=== PATIENT | female | born 1960 | race Caucasian/White ===

== ENCOUNTER 2020-05-11 13:11 | Day surgery (SDC) | payer OTHER ==
[~2020-05-11] VITALS: Ht 177.8 cm; Wt 84.5 kg
[~2020-05-11 13:11] MED LIST: ACYCLOVIR PO; ALPR0.5T7 PO; BUPIVACAINE/PF 0.5% ONE; CODE1CAP9 PO; EPINEPHRINE 1 MG/ML, 1ML ONE; HYDR1TAB16 PO; LACT1CAP37 PO; MAGNESIUM PO; MINOCYCLINE PO; ONDA4TAB7 PO; ZOLP10TA PO; magnesium PO
[2020-05-11 13:41] VITALS: BP 115/76
[2020-05-11] MEDS ORDERED: CHLORHEXIDINE 15 ML UDC MM ONE (14:00)
[2020-05-11] MEDS ORDERED: LACTATED RINGERS 1,000 ML IV SCH (14:00)
[2020-05-11] MEDS ORDERED: CHLORHEXIDINE 15 ML UDC ONE (14:01)
[2020-05-11] MEDS ORDERED: FENTANYL PF 250 MCG/5ML ONE (14:41)
[2020-05-11] MEDS ORDERED: MIDAZOLAM 1 MG/ML, 2ML ONE (14:41)
[2020-05-11] MEDS ORDERED: PROPOFOL 10 MG/ML, 20ML ONE (15:29)
[2020-05-11] MEDS ORDERED: DEXAMETHASONE 4 MG/ML, 5ML ONE (15:32)
[2020-05-11] MEDS ORDERED: CEFAZOLIN 1,000 MG ONE ×2 (15:47)
[2020-05-11] MEDS ORDERED: ONDANSETRON 2MG/ML, 2ML IVPush PRN (16:00)
[2020-05-11] MEDS ORDERED: ACETAMINOPHEN 325 MG TABLET PO PRN (16:00)
[2020-05-11] MEDS ORDERED: HYDROmorphone 1 MG/ML, 1ML INJ IVPush PRN (16:00)
[2020-05-11] MEDS ORDERED: LABETALOL 5MG/ML, 20ML IV PRN (16:00)
[2020-05-11] MEDS ORDERED: MEPERIDINE/PF 25MG/0.5ML IVPush PRN (16:00)
[2020-05-11] MEDS ORDERED: PROMETHAZINE 25 MG/ML, 1ML IVPush PRN (16:00)
[2020-05-11] MEDS ORDERED: hydrALAzine 20 MG/ML, 1ML IV PRN (16:00)
[2020-05-11] MEDS ORDERED: ONDANSETRON 2MG/ML, 2ML ONE (17:04)
[2020-05-11] MEDS ORDERED: KETOROLAC 30 MG/1 ML ONE (17:04)
[2020-05-11] MEDS ORDERED: FENTANYL PF 100 MCG/2ML ONE ×3 (17:26→18:22)
[2020-05-11] MEDS ORDERED: ACETAMINOPHEN 650 MG/20.3 ML UDC ONE (17:26)
[2020-05-11] MEDS ORDERED: OXYcodone 5 MG/5 ML ORAL.SOL UDC ONE ×2 (17:26→18:03)
[2020-05-11] MEDS: OXYcodone 5 MG/5 ML ORAL.SOL UDC PO PRN ×2 (17:30→18:03)
[2020-05-11] MEDS ORDERED: HYDR-1067 PO (17:33)
[2020-05-11] MEDS ORDERED: ONDA4TAB7 PO (17:33)
[2020-05-11] MEDS: FENTANYL PF 100 MCG/2ML IV PRN ×5 (17:40→18:28)
== END 2020-05-11 22:00 | disposition home or self-care (01) ==
LOC: OUT 13:11
PROVIDERS: ATTEND Surgery
DX: K43.2 Incisional hernia without obstruction or gangrene (principal); Z20.822 Contact with and (suspected) exposure to COVID-19; Z90.49 Acquired absence of other specified parts of digestive tract; Z98.890 Other specified postprocedural states
CPT/HCPCS: 49654; C1781; J0171; J0690; J1100; J1885; J2250; J2405; J2704; J3010; J7120; U0003